=== PATIENT | male | born 1980 | race Caucasian/White ===

== ENCOUNTER 2016-04-20 12:35 | Emergency (ER) | payer OTHER ==
[~2016-04-20 12:35] MED LIST: ALBUTEROL17 GM; CIPRO750 MG PO; DAKIN'S MODIF1000 ML TOP; DOXYCYCLINE HY100 M3 PO; LORTAB 10-3251 EACH PO; NO MEDICATIONS PO; TYLOX1 CAP 5/50 PO
== END 2016-04-20 12:55 | disposition home or self-care (01) ==
LOC: CFTX 12:35
DX: M54.41 Lumbago with sciatica, right side (principal); J45.909 Unspecified asthma, uncomplicated; F17.210 Nicotine dependence, cigarettes, uncomplicated
CPT/HCPCS: 96372; 99283; J1885